=== PATIENT | male | born 1970 | race Two or more races ===

== ENCOUNTER 2019-02-13 15:45 | Emergency (ER) | payer MEDICAID ==
[~2019-02-13] VITALS: Ht 165.1 cm; Wt 83.0 kg
[2019-02-13] MEDS ORDERED: METHYLPREDNISOLONE SOD SUCC 125 MG/2 ML VIAL IV STA (17:01)
[2019-02-13] MEDS ORDERED: FAMOTIDINE 20MG/2ML VIAL IV ONE (17:15)
[2019-02-13] MEDS ORDERED: IPRATROPIUM/ALBUTEROL 0.5-3(2.5)MG/3ML NEB HHN ONE (17:15)
[2019-02-13] MEDS ORDERED: LEVOFLOXACIN 500MG PREMIX 100 ML IV ONE (17:15)
[2019-02-13] MEDS ORDERED: MAGNESIUM/ALUMINUM HYDROXIDE/SIMETHICONE 30ML UDC PO ONE (17:15)
[2019-02-13 17:27] LABS: EOSINOPHILS % 3.8 % (0.0-5.0); HEMATOCRIT. 39.9 % (42.0-52.0); HEMOGLOBIN. 13.5 g/dL (14.0-18.0); LYMPHOCYTES % 26.6 % (20.0-50.0); MEAN CORPUSCULAR VOLUME 85.6 fL (80.0-94.0); MEAN PLATELET VOLUME 8.9 fl (7.4-10.4); MONOCYTES % 7.5 % (2.0-8.0); NEUTROPHILS % 61.1 % (40.0-76.0); PLATELET 220 x1000/uL (130-400); RED BLOOD CELL COUNT 4.66 mill/uL (4.7-6.1); RED CELL DISTRIBUTION WIDTH 13.8 % (11.6-14.6)
[2019-02-13 17:30] LABS: CHLORIDE 106 mEq/L (98-107)
[2019-02-13 17:33] LABS: ETHANOL BLOOD < 10 mg/dL
[2019-02-13 17:34] LABS: D-DIMER 0.22 mg/L FEU (<0.50); PARTIAL THROMBOPLASTIN TIME 24.6 sec (23.4-31.0)
[2019-02-13 18:34] VITALS: BP 124/78
== END 2019-02-13 18:38 | disposition home or self-care (01) ==
LOC: ER 15:45
DX: J20.9 Acute bronchitis, unspecified (principal); K21.9 Gastro-esophageal reflux disease without esophagitis; F31.9 Bipolar disorder, unspecified; Z88.0 Allergy status to penicillin; Z87.891 Personal history of nicotine dependence
CPT/HCPCS: 36415; 71045; 80053; 80320; 83690; 83880; 84484; 85025; 85379; 85610; 85730; 87040; 93005; 96365; 96375; 99284; J1956; J2930; J3490; J7620; G0480